=== PATIENT | female | born 1985 | race American Indian/Alaskan Native ===

== ENCOUNTER 2020-01-07 13:59 | Emergency (ER) | payer SELFPAY ==
[2020-01-07 17:06] LABS: Bilirubin,Urine NEG (Negative); Blood,Urine NEG (Negative); Color,Urine Yellow (Yellow); Mucus,Urine FEW /HPF; Protein,Urine <15 mg/dL mg/dL (Negative)
[2020-01-07 17:11] LABS: HCG Qualitative,Urine Negative (Negative)
[2020-01-07] MEDS ORDERED: AZITHROMYCIN 250 MG TAB PO ONE (17:18)
[2020-01-07] MEDS ORDERED: LIDOCAINE-MPF (1%) 10 MG/1 ML VIAL 5 ML INFILTRATI ONE (17:18)
--- NOTE | 2020-01-07 17:18 | Emergency Department Report ---
ED Female HPI - General Chief complaint: Urogenital-Male Stated complaint: FEMALE ISSUES Time Seen by Provider: 01/07/20 16:28 Source: patient Mode of arrival: Ambulatory Limitations: No Limitations - History of Present Illness Initial comments: 34-year-old female presenting with chief complaint of UTI symptoms for the past week. She reports dysuria/burning, frequency and also states that she believes that her "vagina fell out". She denies any abdominal pain, fevers, vomiting. Symptoms mild to moderate with no alleviating or exacerbating factors. - Related Data Previous Rx's Medication Instructions Recorded Last Taken Type Fluconazole [Diflucan TAB] 200 mg PO QDAY #1 tablet 01/07/20 Unknown Rx cephALEXin [Keflex] 500 mg PO Q12HR #10 cap 01/07/20 Unknown Rx metroNIDAZOLE [metroNIDAZOLE 70 gm VG DAILY #5 gel.w.appl 01/07/20 Unknown Rx VAGINAL 0.75% gel] Allergies Allergy/AdvReac Type Severity Reaction Status Date / Time No Known Allergies Allergy Unverified 01/07/20 14:13 ED Review of Systems ROS: Stated complaint: FEMALE ISSUES Other details as noted in HPI Comment: All other systems reviewed and negative Genitourinary: as per HPI ED Past Medical Hx - Past Medical History Previous Medical History?: No - Surgical History Past Surgical History?: No - Medications Home Medications: Home Medications Medication Instructions Recorded Confirmed Last Taken Type Fluconazole [Diflucan TAB] 200 mg PO QDAY #1 tablet 01/07/20 Unknown Rx cephALEXin [Keflex] 500 mg PO Q12HR #10 cap 01/07/20 Unknown Rx metroNIDAZOLE [metroNIDAZOLE 70 gm VG DAILY #5 gel.w.appl 01/07/20 Unknown Rx VAGINAL 0.75% gel] ED Physical Exam - General Limitations: No Limitations General appearance: alert, in no apparent distress - Head Head exam: Present: atraumatic, normocephalic - Eye Eye exam: Present: normal appearance - ENT ENT exam: Present: mucous membranes moist - Neck Neck exam: Present: normal inspection - Respiratory Respiratory exam: Present: normal lung sounds bilaterally. Absent: respiratory distress - Cardiovascular Cardiovascular Exam: Present: regular rate, normal rhythm. Absent: systolic murmur, diastolic murmur, rubs, gallop - GI/Abdominal GI/Abdominal exam: Present: soft, normal bowel sounds. Absent: distended, tenderness, guarding - External exam: Present: normal external exam Speculum exam: Absent: vaginal discharge ([employer] Omaira, medic) - Extremities Exam Extremities exam: Present: normal inspection - Back Exam Back exam: Present: normal inspection - Neurological Exam Neurological exam: Present: alert, oriented X3 - Psychiatric Psychiatric exam: Present: normal affect, normal mood - Skin Skin exam: Present: warm, dry, intact, normal color. Absent: rash ED Course Vital Signs 01/07/20 01/07/20 16:43 16:51 Temperature 98.4 F 98.4 F Pulse Rate 83 79 Respiratory 14 14 Rate Blood Pressure 135/77 Blood Pressure 146/72 [Left] O2 Sat by Pulse 96 97 Oximetry ED Medical Decision Making - Medical Decision Making Patient presenting with UTI symptoms. States that she also had some white discharge last night that looked like a yeast infection. Her examination is normal. We will check urinalysis. - Differential Diagnosis Vaginitis, UTI Critical care attestation.: If time is entered above; I have spent that time in minutes in the direct care of this critically ill patient, excluding procedure time. ED Disposition Clinical Impression: Dysuria Vaginitis Qualifiers: Chronicity: acute Qualified Code(s): N76.0 - Acute vaginitis Disposition: - TO HOME OR SELFCARE Is pt being admited?: No Does the pt Need Aspirin: No Condition: Stable Instructions: Dysuria (ED) Prescriptions: Fluconazole [Diflucan TAB] 200 mg PO QDAY #1 tablet cephALEXin [Keflex] 500 mg PO Q12HR #10 cap metroNIDAZOLE [metroNIDAZOLE VAGINAL 0.75% gel] 70 gm VG DAILY #5 gel.w.appl Referrals: PRIMARY CARE, [Primary Care Provider] - 3-5 Days Time of Disposition: 17:18
[2020-01-07 18:14] VITALS: BP 140/97
== END 2020-01-07 18:01 | disposition home or self-care (01) ==
LOC: ED 13:59
DX: N76.0 Acute vaginitis (principal); Z79.899 Other long term (current) drug therapy
CPT/HCPCS: 81001; 81025; 96372; 99283; J0696